=== PATIENT | male | born 2000 | race Two or more races ===

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

== ENCOUNTER 2025-06-14 04:36 | Emergency (ER) | payer MEDICAID, OTHER ==
[~2025-06-14] VITALS: Ht 170.2 cm; Wt 79.5 kg
[2025-06-14] MEDS: MAALOX PLUS or MAALOX 30 ML PO ONE (04:54)
[2025-06-14] MEDS: FAMOTIDINE 20 MG TAB PO ONE (04:54)
[2025-06-14] MEDS: ONDANSETRON ODT 4 MG TAB PO ONE (04:54)
--- NOTE | 2025-06-14 05:11 | ED.PDOC ---
GI ASSESSMENT HPI Comments 24 year old male with a Hx of Gallstones presents to the ED for the c/c of Epigastric ABD pain w/ associated N/. Pt states that his pain started approx 2x hours before ED arrival. Pt states that he was awoken due to the pain and has no alleviating factors. Pt denies any radiation, or V/D. No other associated symptoms, modifiers, recent injuries or sick contacts present at this time. Chief Complaint: Abdominal Pain Time Seen by MD: 05:07 Primary Care Provider: ARCHIBALD Reviewed Notes: Nurses Notes, Medications, Allergies Allergies: Coded Allergies: NO KNOWN ALLERGIES (Unverified , 07/26/13) Home Meds No Active Prescriptions or Reported Meds Information Source: Patient Mode of Arrival: Ambulatory Timing: Hours Duration: Since onset, Hours Prehospital treatment: None Quality: Aching, Cramping Vomitus: None Stool: Normal Severity: Moderate Recent: None Recent Hx of: None Pain Location: Epigastric Modifying Factors: Exertion, Food, Movement Associated sign and symptoms: Nausea, Abdominal Pain Past Medical History PAST MEDICAL HISTORY: Gallstones Surgical History: Denies all surgeries Family History Family History: Unknown Social History Smoker: Non-Smoker Alcohol: Denies ETOH Use Drugs: Denies Drug Use Lives In: Home Constitutional: denies: chills, diaphoresis, fatigue, fever, malaise, sweats, weakness, others EENTM: denies: blurred vision, double vision, ear bleeding, ear discharge, ear drainage, ear pain, ear ringing, eye pain, eye redness, hearing loss, mouth pain, mouth swelling, nasal discharge, nose bleeding, nose congestion, nose pain, photophobia, tearing, throat pain, throat swelling, voice changes, others Respiratory: denies: cough, hemoptysis, orthopnea, SOB at rest, shortness of breath, SOB with excertion, stridor, wheezing, others Cardiovascular: denies: chest pain, dizzy spells, diaphoresis, Dyspnea on exertion, edema, irregular heart beat, left arm pain, lightheadedness, palpitations, PND, syncope, others Gastrointestinal: reports: abdominal pain, nausea; denies: abdomen distended, blood streaked bowels, constipated, diarrhea, dysphagia, difficulty swallowing, hematemesis, melena, poor appetite, poor fluid intake, rectal bleeding, rectal pain, vomiting, others Genitourinary: denies: burning, dysuria, flank pain, frequency, hematuria, incontinence, penile discharge, penile sore, pain, testicle pain, testicle swelling, urgency, others Neurological: denies: dizziness, fainting, headache, left sided numbness, left sided weakness, numbness, paresthesia, pre-existing deficit, right sided nu mbness, right sided weakness, seizure, speech problems, tingling, tremors, weakness, others Musculoskeletal: denies: back pain, gout, joint pain, joint swelling, muscle pain, muscle stiffness, neck pain, others Integumetry: denies: bruises, change in color, change in hair/nails, dryness, laceration, lesions, lumps, rash, wounds, others Allergic/Immunocompromised: denies: Difficulty Healing, Frequent Infections, Hives, Itching, others Hematologic/Lymphatic: denies: anemia, blood clots, easy bleeding, easy bruising, swollen glands, others Endocrine: denies: excessive hunger, excessive sweating, excessive thirst, excessive urination, flushing, intolerance to cold, intolerance to heat, unexplained weight gain, unexplained weight loss, others Psychiatric: denies: anxiety, bipolar disorder, depression, hopeless, panic disorder, schizophrenia, sleepless, suicidal, others All Other Systems: Reviewed and Negative Physical Exam General Appearance: Moderate Distress, Normal HEENT: Normal ENT Inspection, Pharynx Normal, TMs Normal Neck: Full Range of Motion, Non-Tender, Normal, Normal Inspection Respiratory: Chest Non-Tender, Lungs Clear, No Accessory Muscle Use, No Respiratory Distress, Normal Breath Sounds Cardiovascular: No Edema, No JVD, No Murmur, No Gallop, Normal Peripheral Pulses, Regular Rate/Rhythm Breast Exam: Deferred Gastrointestinal: Epigastric, No Pulsatile Mass, Normal Bowel Sounds, Soft, Tenderness Genitalia: Deferred Pelvic: Deferred Rectal: Deferred Extremities: No calf tenderness, Normal capillary refill, Normal inspection, Normal range of motion, Non-tender, No pedal edema Musculoskeletal : Apperance: Normal Neurologic: Alert, decorating instructor II-XII nml as Tested, No Motor Deficits, Normal Affect, Normal Mood, No Sensory Deficits Cerebellar Function: Normal Reflexes: Normal Skin: Dry, Normal Color, Warm Lymphatic: No Adenopathy Was a procedure done? Was a procedure done?: No GI differential Dx Differential Diagnosis: Appendicitis, Bowel Obstruction, Cholangitis, Cholecystitis, Constipation, Diverticular disease, Gastritis/PUD, Gastroenteriti s, Pancreatitis, Urinary Obstruction, UTI, Urolithiasis, Dehydration, Electrolyte Imbalance, Food Poisoning, Bacterial, Parasitic, Stress Ulcer, Kidney Stone X-Ray, Labs, Meds, VS Vital Signs Date Time Temp Pulse Resp B/P (MAP) Pulse Ox O2 Delivery O2 Flow Rate FiO2 06/14/25 05:00 Room Air* 0 21 06/14/25 05:00 98.1 56 17 114/48 (70) 98 98.1 06/14/25 04:39 97.6 54 18 150/84 (106) 98 97.6 06/14/25 04:39 51 Lab Test 06/14/25 05:04 Range/Units White Blood Count 10.1 4.4-10.8 10^3/uL Red Blood Count 5.28 4.5-5.90 10^6/uL Hemoglobin 15.5 13.5-17.5 g/dL Hematocrit 45.1 41.0-53.0 % Mean Corpuscular Volume 85.6 80.0-100.0 fL Mean Corpuscular Hemoglobin 29.4 28.0-32.0 pg Mean Corpuscular Hemoglobin Concent 34.4 32.0-36.0 g/dL Red Cell Distribution Width 12.6 11.8-14.3 % Platelet Count 239 140-450 10^3/uL Mean Platelet Volume 9.1 6.9-10.8 fL Neutrophils (%) (Auto) 65.4 37.0-80.0 % Lymphocytes (%) (Auto) 25.9 10.0-50.0 % Monocytes (%) (Auto) 6.2 0.0-12.0 % Eosinophils (%) (Auto) 2.1 0.0-7.0 % Basophils (%) (Auto) 0.4 0.0-2.0 % Neutrophils # (Auto) 6.6 1.6-8.6 10 ^3/uL Lymphocytes # (Auto) 2.6 0.4-5.4 10 ^3/uL Monocytes # (Auto) 0.6 0-1.3 10 ^3/uL Eosinophils # (Auto) 0.2 0-0.8 10 ^3/uL Basophils # (Auto) 0 0-0.2 10 ^3/uL Nucleated Red Blood Cells 0.1 % Sodium Level Pending Potassium Level Pending Chloride Level Pending Carbon Dioxide Level Pending Anion Gap Pending Blood Urea Nitrogen Pending Creatinine Pending Glomerular Filtration Rate Calc Pending BUN/Creatinine Ratio Pending Serum Glucose Pending Calcium Level Pending Total Bilirubin Pending Aspartate Amino Transferase (AST) Pending Alanine Aminotransferase (ALT) Pending Alkaline Phosphatase Pending Troponin I High Sensitivity Pending Total Protein Pending Albumin Pending Lipase Pending Current Medications Medications (Trade) Dose Ordered Sig/Navin Route Start Time Stop Time Status Last Admin Ondansetron HCl (Zofran Po) 4 mg ONCE ONCE PO 06/14/25 04:45 06/14/25 04:47 DC 06/14/25 04:54 Al Hydrox/Mg Hydrox/Simethicone (Maalox Plus) 30 ml ONCE ONCE PO 06/14/25 04:45 06/14/25 04:47 DC 06/14/25 04:54 Famotidine (Pepcid Tablet) 40 mg ONCE ONCE PO 06/14/25 04:45 06/14/25 04:47 DC 06/14/25 04:54 Time of 1ST Reevaluation: 05:38 Reevaluation 1ST: Unchanged Patient Education/Counseling: Diagnosis, Treatment, Need For Follow Up Family Education/Counseling: No Family Present SEPSIS Sepsis Screen Date sepsis recognized/suspect: Jun 14, 2025 Time Sepsis recognized/suspect: 436 Recent Procedure: No On Antibiotic Therapy: No Respiratory Rate >20: No Heart Rate >90: No Temp<36 C (96.8 F) or >38.3 C: No SBP <90 or MAP <65 mmHG: No New Acute Mental Status Change: No Is the patient on CPAP, BIPAP,: No Physician Orders Troponin-I Hs (06/14/25 06:00) Troponin-I Hs (06/14/25 09:00) Troponin-I Hs (06/14/25 12:00) Comprehensive Metabolic Panel (06/14/25 04:45) Lipase (06/14/25 04:45) Ct Ab Pel Wo Con-No Oral Or Iv (06/14/25 04:45) Troponin-I Hs (06/14/25 05:45) Troponin-I Hs (06/14/25 07:45) Electrocardigram (06/14/25 04:47) Vital Signs Date Time Temp Pulse Resp B/P (MAP) Pulse Ox O2 Delivery O2 Flow Rate FiO2 06/14/25 05:00 Room Air* 0 21 06/14/25 05:00 98.1 56 17 114/48 (70) 98 98.1 06/14/25 04:39 97.6 54 18 150/84 (106) 98 97.6 06/14/25 04:39 51 Laboratory Tests Test 06/14/25 05:04 White Blood Count 10.1 10^3/uL (4.4-10.8) Medications Medications Dose Ordered Sig/Navin Route Start Time Stop Time Status Last Admin Dose Admin Al Hydrox/Mg Hydrox/Simethicone 30 ml ONCE ONCE PO 06/14/25 04:45 06/14/25 04:47 DC 06/14/25 04:54 Famotidine 40 mg ONCE ONCE PO 06/14/25 04:45 06/14/25 04:47 DC 06/14/25 04:54 Ondansetron HCl 4 mg ONCE ONCE PO 06/14/25 04:45 06/14/25 04:47 DC 06/14/25 04:54 Departure 1 Departure Time of Disposition: 05:53 Impression: Primary Impression: Cholecystitis Disposition: 02 SHORT TERM [facility]OSPITAL Condition: Guarded e-Prescriptions No Active Prescriptions or Reported Meds Discharged With: Self Comments Epigastric Pain with Suspected Acute Cholecystitis Chief Complaint: Severe epigastric pain for 2 hours with nausea History of Present Illness: Patient is a 24-year-old male who presents to the Emergency Department with a 2- hour history of severe epigastric pain accompanied by nausea. The pain is localized to the epigastric region and has been persistent since onset. Patient appears to be in moderate distress due to the pain. No reported fever, vomiting, diarrhea, or changes in bowel habits. No prior similar episodes reported. Review of Systems: Constitutional: Moderate distress noted. Gastrointestinal: Positive for epigastric pain and nausea. Negative for vomiting, diarrhea, or constipation. All other systems: Deferred or negative. Physical Exam: General: Patient in moderate distress. Abdomen: Tenderness to palpation in the epigastric area. No rebound tenderness or guarding documented. Lab Results: CBC: WBC 10,000/?L (elevated) Imaging and Other Relevant Results: CT Abdomen/Pelvis: Moderate gallbladder wall thickening near the cap. Possible gallstone visualized at the neck of the gallbladder. Ultrasound: Ordered, results pending. Medical Decision Making: Summary Statement: 24-year-old male presenting with acute epigastric pain and nausea, found to have gallbladder wall thickening and possible gallstone on CT, with mild leukocytosis, consistent with early acute cholecystitis. Problem List: 1. Acute epigastric pain, 2. Suspected early acute cholecystitis, 3. Gallstone at neck of gallbladder, 4. Mild leukocytosis Differential Diagnosis: Acute cholecystitis, biliary colic, acute pancreatitis, peptic ulcer disease, gastritis, gastroenteritis, appendicitis ED Course: Patient received IV fluids and antibiotics. CT abdomen/pelvis showed gallbladder wall thickening and possible gallstone. Ultrasound ordered for further evaluation. Decision made to admit or transfer patient to [facility] for surgical evaluation and management. Assessment and Plan: 1. Suspected Early Acute Cholecystitis: - Clinical presentation, laboratory findings, and imaging studies are consistent with early acute cholecystitis - Continue IV fluids for hydration - Continue IV antibiotics (specific antibiotic not mentioned in oracle database administrator) - NPO status - Pain management as needed - Ultrasound of right upper quadrant to confirm diagnosis 2. Disposition: - Patient requires admission or transfer to [facility] - Surgical consultation for possible cholecystectomy - GI consultation as alternative management approach - Will arrange appropriate transfer/admission after ultrasound results Additional Notes: Patient may require transfer to [facility] for surgical intervention Billing Information: ICD-10: K81.0 - Acute cholecystitis ICD-10: R10.13 - Epigastric pain ICD-10: K80.20 - Calculus of gallbladder without cholecystitis, without obstruction Critical Care Note Critical Care Time?: No Stability Stability form required: No Heart Score Heart Score: Heart Score Response (Comments) Value History Slightly Suspicious 0 EKG Repolarization Disturb 1 Age <45 0 Risk Factors No known risk factors 0 Troponin Normal limit 0 Total 1 I personally scribed for KRYS AMBROSIO MD ([email or web address]) on 06/14/25 at 05:11. Electronically submitted by Chau Vanegas ([email or web address]). KRYS AMBROSIO MD Jun 14, 2025 05:11
[2025-06-14 05:24] LABS: Hematocrit 45.1 % (41.0-53.0); Hemoglobin 15.5 g/dL (13.5-17.5); Mean Corpuscular Hemoglobin 29.4 pg (28.0-32.0); Mean Corpuscular Volume 85.6 fL (80.0-100.0); Nucleated Red Blood Cells % 0.1 %
--- NOTE | 2025-06-14 05:25 | DVH ---
Exam: CT CT AB PEL WO CON-NO ORAL OR IV History: abd pain Comparison Study: None Technique: Multidetector spiral CT of the abdomen was performed from lung bases to pubic symphysis. I maging was performed without IV contrast. Axial, coronal and sagittal multiplanar reformats were obta ined from the axial data set by the technologist. Radiation Dose : 1. Abdomen/Pelvis: CTDIvol 6.68 mGy, DLP 386.57 mGy*cm. Findings: Evaluation of solid organs is limited due to lack of intravenous contrast use. Lung Bases: No acute or significant lung base finding. Normal heart size. No pleural or pericardial effusion. Liver: The liver is normal in size. No focal lesions. Gallbladder and Biliary Tree: Moderate wall thickening of the gallbladder cap. A fundal gallstone can not be completely excluded. Spleen: Unremarkable Pancreas: The pancreas is grossly normal in appearance. Adrenal Glands: Unremarkable Kidneys: Kidneys are grossly normal without calculi or hydronephrosis. Bladder: Grossly unremarkable for degree of distention. Bowel: The stomach is grossly normal in appearance. Small bowel and colon are normal in caliber and d istribution. The appendix is normal. Ascites: Absent Lymphadenopathy: No mesenteric, retroperitoneal or periportal lymphadenopathy. Abdominal Wall and Mesentery: Unremarkable. Vasculature: The visualized abdominal aorta is normal in size and caliber. Evaluation of abdominal a nd pelvic vessels is limited due to lack of intravenous contrast. Pelvic Organs: Unremarkable Musculoskeletal: No aggressive focal bony lesions, acute fractures or dislocation. IMPRESSION: 1. No acute abdominal or pelvic findings. 2. Moderate gallbladder wall thickening near the cap. A gallstone within the fundus can not be compl etely excluded. Radiation optimization: All CT scans at this facility use at least one of these dose optimization shelly hniques: automated exposure control mA and/or kV adjustment per patient size (includes targeted exam s where dose is matched to clinical indication) or iterative reconstruction.
[2025-06-14 05:46] LABS: Alanine Aminotransferase 38 U/L (7-40); Alkaline Phosphatase 95 U/L (46-116); Anion Gap 10 (5-15); BUN/Creatinine Ratio 16.5 (10.0-20.0); Bilirubin, Total 0.7 mg/dL (0.2-1.0); Blood Urea Nitrogen 15 mg/dL (9-23); Calcium 9.4 mg/dL (8.7-10.4); Carbon Dioxide 28 mmol/L (20-31); Chloride 103 mmol/L (98-107); Lipase 45 U/L (12-53); Sodium 141 mmol/L (136-145); Total Protein 7.3 g/dL (5.7-8.2)
[2025-06-14 06:04] LABS: Albumin 4.9 g/dL (3.2-4.8); Glucose 122 mg/dL (74-106); Potassium 3.2 mmol/L (3.5-5.1)
[2025-06-14] MEDS: PIPERACILLIN-TAZOB 3.375GM 100 ML IV ONE (06:22)
[2025-06-14] MEDS: MORPHINE SULFATE INJ 2 MG/ml SYRG IV ONE (06:25)
[2025-06-14 08:00] VITALS: PULSE 53; RESP 17; O2SAT 97
[2025-06-14 09:53] VITALS: BP 132/50; PULSE 75; RESP 21; TEMP 97.8; O2SAT 96
== END 2025-06-14 10:32 | disposition short-term general hospital (02) ==
LOC: ER 04:36
DX: K81.9 Cholecystitis, unspecified (principal)
CPT/HCPCS: 36415; 74176; 80053; 83690; 84484; 85025; 96365; 99285; J2543; Q0162